=== PATIENT | male | born 1970 | race Caucasian/White ===

== ENCOUNTER 2018-01-07 10:21 | Emergency (ER) | payer OTHER ==
[~2018-01-07] VITALS: Ht 177.8 cm; Wt 86.4 kg
[2018-01-07 10:22] VITALS: BP 110/77
[2018-01-07] MEDS ORDERED: MULT-1285 PO (10:23)
== END 2018-01-07 11:00 | disposition home or self-care (01) ==
LOC: EMS 10:22 → EEVIPCON 10:22 → EMS 11:00
DX: J40 Bronchitis, not specified as acute or chronic (principal); K21.9 Gastro-esophageal reflux disease without esophagitis; Z79.899 Other long term (current) drug therapy